=== PATIENT | male | born 1985 | race Caucasian/White ===

== ENCOUNTER 2017-01-08 11:42 | Emergency (ER) | payer MEDICAID ==
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
== END 2017-01-08 12:36 | disposition home or self-care (01) ==
LOC: CED 11:42
DX: S06.0X0A Concussion without loss of consciousness, initial encounter (principal); S43.401A Unspecified sprain of right shoulder joint, initial encounter; S20.221A Contusion of right back wall of thorax, initial encounter; G40.909 Epilepsy, unspecified, not intractable, without status epilepticus; F17.210 Nicotine dependence, cigarettes, uncomplicated; V29.9XXA Motorcycle rider (driver) (passenger) injured in unspecified traffic accident, initial encounter; Y92.410 Unspecified street and highway as the place of occurrence of the external cause
CPT/HCPCS: 70450; 73010; 73030; 96374; 96375; 99284; J2270; J2405